=== PATIENT | male | born 1980 | race Caucasian/White ===

== ENCOUNTER → 2022-10-03 12:56 | Outpatient (CLI) | payer OTHER, SELFPAY ==
--- NOTE | 2022-10-03 12:59 | DI.RAD.S_ITS ---
PROCEDURE: XR LUMBAR SPINE MIN 4V INDICATIONS: LOW BACK PAIN TECHNIQUE: 5 views of the lumbar spine were acquired, including bilateral oblique views. COMPARISON: [facility], CT LUMBAR SPINE, 10/14/2020, 16:13. [facility], XR L-SPINE 4-6V, 02/22/2020, 15:04. FINDINGS: Bones: 5 nonrib-bearing vertebrae are present. There is normal bony alignment. No vertebral body compression fractures. No suspicious bony lesions. Minimal degenerative endplate changes and facet hypertrophy. Soft tissues: Overlying bowel gas pattern is normal. No suspicious soft tissue calcifications. Surgical clips are seen projecting over the right pelvis. Oblique images: No pars defects. IMPRESSION: No acute osseous abnormality. Minimal spondylosis. Approved by: Donny Kaufman M.D. on 10/03/2022 at 20:38
== END ==
PROVIDERS: Referring Provider Anesthesiology; Visit Provider Anesthesiology
DX: M47.816 Spondylosis without myelopathy or radiculopathy, lumbar region (principal); M54.50 Low back pain, unspecified; G89.4 Chronic pain syndrome
CPT/HCPCS: 72110; 99214

== ENCOUNTER 2022-10-18 14:57 | Outpatient (CLI) | payer OTHER, SELFPAY ==
[2022-10-18] VITALS (9 sets, daily range): BP systolic 114–133; BP diastolic 70–88; PULSE 65–78; RESP 14–21; TEMP 36.6; O2SAT 97–100
--- NOTE | 2022-10-18 14:58 | DI.RAD.S_ITS ---
PROCEDURE: PAIN L/S FACET INJ/BLK 1ST SARA COMPARISON: [facility], CR, XR LUMBAR SPINE MIN 4V, 10/03/2022, 13:17. INDICATIONS: SPONDYLOSIS FINDINGS: Fluoroscopic spot filming was performed to verify placement of spinal needles on both sides at the L4-L5 and L5-S1 levels, as labeled on the films. Appropriate location of the needle tips was confirmed by injection of iodinated contrast. IMPRESSION: Intraprocedural examination demonstrating appropriate positions of the needles. Dictated by: Valerio Arriaga M.D. on 10/18/2022 at 17:10 Approved by: Valerio Arriaga M.D. on 10/18/2022 at 17:11
--- NOTE | 2022-10-18 15:26 | P.PCN_ITS ---
Date/Time/Diagnoses Date of procedure: 10/18/22 Time of procedure: 15:30 Procedure Notes Physician: Dimas Lovell Total Fluoroscopy time (seconds): 25 Total sedation minutes: 20 Procedure in detail & Post-procedure care: Bilateral L4-5 and L5-S1 Intra-articular Lumbar Facet Injection(s) Indications: Rylan is referred by Dr. Spencer for treatment of lumbar facet arthropathy with low back pain. Preoperative diagnosis: Bilateral lumbar spondylosis Postoperative diagnosis: Same Focused Examination: Ax3 Mood and affect are normal Vital Signs: VSS ASA: 2 Consent: Following review of allergies and potential side effects/complications, including, but not necessarily limited to, infection, allergic reaction, local tissue breakdown, stroke, temporary or permanent nerve injury, paralysis, and possible , the patient indicated that they understood and agreed to proceed.? An informed consent document was signed by the patient, witnessed by a nurse and placed in the patient's chart.? Additionally, other treatment options including medications and physical therapy were reviewed with the patient. All questions were answered. Site was then marked. Anesthesia: After review of previous anesthetic history and IV conscious sedation, the patient was deemed safe to proceed with today's procedure with IV conscious sedation. IV sedation was accomplished with midazolam 2 mg administered by the RN after order by Dr. Lovell. Sedation was titrated to patient comfort during the course of the procedure. Patient remained responsive to all verbal commands. Position: Prone Monitoring: NIBP, Pulse oximetry, 3 lead EKG Needle used: 22 ga, 3.5 in spinal neelde Contrast: Isovue 300-M 0.3 mL per site Injectate: Depomedrol 20 mg (40 mg/mL) with 0.5% Bupivacaine 0.5 mL per site Technique: The skin was prepped with chloraprep and then draped in a sterile fashion. Time out was performed as per protocol. Oxygen applied via NC. Skin and subcutaneous structures of the needle entry site(s) were then infiltrated with 3 mL of lidocaine 1%. Under AP, ipsilateral oblique and lateral fluoroscopic control, the spinal needle was guided into the posterior aspect of the right L4- 5 intra-articular space. Next, under AP, ipsilateral oblique and lateral fluoroscopic control, the spinal needle was guided into the posterior aspect of the right L5-S1 intra-articular space. Isoview 300-M was then injected and the spread was consistent with intra-articular placement. There was no evidence for intravascular or extracapsular uptake. After negative aspiration, the above- mentioned injectate was then slowly administered and the needle withdrawn. The patient expressed no unusual discomfort or paresthesias during the injection. Skin and subcutaneous structures of the needle entry site(s) of the left side were then infiltrated with 3 mL of lidocaine 1%. Under AP, ipsilateral oblique and lateral fluoroscopic control, the spinal needle was guided into the posterior aspect of the left L4-5 intra-articular space. Next, under AP, ipsilateral oblique and lateral fluoroscopic control, the spinal needle was guided into the posterior aspect of the left L5-S1 intra-articular space. Isoview 300-M was then injected and the spread was consistent with intra- articular placement. There was no evidence for intravascular or extracapsular uptake. After negative aspiration, the above-mentioned injectate was then slowly administered and the needle withdrawn. The patient expressed no unusual discomfort or paresthesias during the injectionBand-Aids applied to injection sites. EBL: less than 1 ml Complications: None Post Procedure: Patient was taken to the recovery and monitored. The patient was provided a Pain Log to continue to record the patient's response to the target-s pecific procedure prior to the patient's follow-up visit with the referring physician. Patient was stable upon discharge. Detailed post procedure instructions were provided. Patient was asked to call in the event of worsening pain, fever, weakness, numbness or bladder or bowel incontinence.
[2022-10-18] MEDS: MIDAZOLAM 2 MG/2 ML VIAL IV (15:48)
[2022-10-18] MEDS: BUPIVACAINE 0.5% (PF) 30 ML VIAL 5 ML INJ (15:54)
[2022-10-18] MEDS: IOPAMIDOL 15 ML VIAL 3 ML INJ (15:55)
== END 2022-10-18 16:20 | disposition home or self-care (01) ==
LOC: RAD 14:58
PROVIDERS: PCP Internal Medicine; Referring Provider Anesthesiology; Visit Provider Anesthesiology
DX: M47.816 Spondylosis without myelopathy or radiculopathy, lumbar region (principal); M47.817 Spondylosis without myelopathy or radiculopathy, lumbosacral region
CPT/HCPCS: 64493; 64494; 99152; J1030; J2250; J2920

== ENCOUNTER 2024-03-04 09:57 | Outpatient (CLI) | payer BC, SELFPAY ==
[2024-03-04] VITALS (7 sets, daily range): BP systolic 121–143; BP diastolic 63–96; PULSE 84–91; RESP 13–18; TEMP 36.7; O2SAT 98–100
--- NOTE | 2024-03-04 10:30 | DI.RAD.S_ITS ---
PROCEDURE: PAIN L/S FACET INJ/BLK 1ST SARA INDICATIONS: SPONDYLOSIS COMPARISON: [facility], , PAIN L/S FACET INJ/BLK 1ST SARA, 10/18/2022, 15:43. FINDINGS: Fluoroscopic spot filming was performed to verify placement of spinal needles at the bilateral L4-5, L5-S1 level(s), as labeled on the films. Appropriate location(s) of the needle tip(s) was confirmed by injection of iodinated contrast. IMPRESSION: Intra procedural examination demonstrating appropriate positions of the needles. Dictated by: Oli Martinez M.D. on 03/04/2024 at 16:01 Approved by: Oli Martinez M.D. on 03/04/2024 at 16:01
[2024-03-04] MEDS: iopamidoL 15 ML VIAL 3 ML INJ (11:02)
[2024-03-04] MEDS: methylPREDNISolone acetate 80 MG/ML VIAL INJ (11:03)
[2024-03-04] MEDS: BUPIVACAINE 0.25% (PF) VIAL 5 ML INJ (11:03)
--- NOTE | 2024-03-04 12:24 | P.PCN_ITS ---
Date/Time/Diagnoses Date of procedure: 03/04/24 Time of procedure: 10:30 Procedure Notes Physician: Dimas Lovell Total Fluoroscopy time (seconds): 28 Total sedation minutes: 0 Procedure in detail & Post-procedure care: Bilateral L4-5 and L5-S1 Intra-articular Lumbar Facet Injection(s) Indications: Rylan is presenting for treatment of lumbar facet arthropathy with low back pain. Preoperative diagnosis: Lumbar spondylosis Postoperative diagnosis: Same Focused Examination: Ax3 Mood and affect are normal Vital Signs: VSS Consent: Following review of allergies and potential side effects/complications, including, but not necessarily limited to, infection, allergic reaction, local tissue breakdown, stroke, temporary or permanent nerve injury, paralysis, and possible , the patient indicated that they understood and agreed to proceed.? An informed consent document was signed by the patient, witnessed by a nurse and placed in the patient's chart.? Additionally, other treatment options including medications and physical therapy were reviewed with the patient. All questions were answered. Site was then marked. Anesthesia: Local Position: Prone Monitoring: NIBP, Pulse oximetry, 3 lead EKG Needle used: 22 ga, 3.5 in spinal needle Contrast: Isovue 300-M 0.3 mL per site Injectate: Depomedrol 20 mg (80 mg/ml) with 0.25% Bupivacaine, 0.5 mL per site Technique: The skin was prepped with chloraprep and then draped in a sterile fashion. Time out was performed as per protocol. Oxygen applied via NC. Skin and subcutaneous structures of the needle entry site(s) were then infiltrated with 3 mL of lidocaine 1%. Under AP, ipsilateral oblique and lateral fluoroscopic control, the spinal needle was guided into the posterior aspect of the right L4- 5 intra-articular space. Isoview 300-M was then injected and the spread was consistent with intra-articular placement. There was no evidence for intravascular or extracapsular uptake. After negative aspiration, the above- mentioned injectate was then slowly administered and the needle withdrawn. The patient expressed no unusual discomfort or paresthesias during the injection. The above process was then repeated for the remaining joints. Band-Aids applied to injection sites. EBL: less than 1 ml Complications: None Post Procedure: Patient was taken to the recovery and monitored. The patient was provided a Pain Log to continue to record the patient's response to the target- specific procedure prior to the patient's follow-up visit with the referring physician. Patient was stable upon discharge. Detailed post procedure instructions were provided. Patient was asked to call in the event of worsening pain, fever, weakness, numbness or bladder or bowel incontinence.
== END 2024-03-04 11:22 | disposition home or self-care (01) ==
PROVIDERS: Referring Provider Anesthesiology; Visit Provider Anesthesiology
DX: M47.816 Spondylosis without myelopathy or radiculopathy, lumbar region (principal)
CPT/HCPCS: 64493; 64494; J1010; J3490